=== PATIENT | female | born 1985 | race Caucasian/White ===

== ENCOUNTER 2019-06-23 21:20 | Emergency (ER) | payer OTHER ==
[~2019-06-23] VITALS: Ht 170.2 cm; Wt 56.2 kg
[2019-06-23 21:20] VITALS: Ht 170.2 cm; Wt 56.2 kg
[2019-06-23 23:34] VITALS: BP 114/76
== END 2019-06-23 23:34 | disposition home or self-care (01) ==
LOC: ED 21:20
DX: H10.33 Unspecified acute conjunctivitis, bilateral (principal); Z88.8 Allergy status to other drugs, medicaments and biological substances
CPT/HCPCS: J1885; J3010; J7030